=== PATIENT | female | born 1970 | race Caucasian/White ===

== ENCOUNTER 2016-06-30 16:42 | Emergency (ER) | payer OTHER ==
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
[2016-06-30] MEDS ORDERED: MORPHINE SULFATE INJ 10 MG/ML VIAL IM ONE (17:17)
[2016-06-30] MEDS ORDERED: ONDANSETRON ODT 8 MG TAB SL ONE (17:24)
[2016-06-30] MEDS ORDERED: ONDANSETRON INJ 4 MG/2 ML VIAL IV ONE (17:49)
[2016-06-30] MEDS ORDERED: MORPHINE SULFATE INJ 10 MG/ML VIAL IV ONE (18:13)
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
[2016-06-30] MEDS ORDERED: HYDROmorphone HCL INJ 2 MG/ML VIAL IV ONE ×2 (19:23→20:57)
--- NOTE | 2016-06-30 20:40 | CT ---
PROCEDURE: CT of the right knee without intravenous contrast Clinical History and Indication: Right knee pain Comparison: X-ray of the right knee done on the same day Technique: CT of the right knee was done in orthogonal planes, without intravenous contrast Findings: There are no fractures or periosteal reactions involving the bones of the right knee joint. There is no suprapatellar joint effusion. The musculature of the right knee appears grossly unremarkable. An MRI is more sensitive than the current study in evaluation of integrity of the musculature ligaments menisci and tendons. A benign bony island is seen in the proximal metadiaphyseal region of the right tibia. Impression: Unremarkable noncontrast CT of the right knee Location of Interpretation: [id number]. Electronically signed by: Rosendo Waddell MD 06/30/2016 8:39 PM CDT
[2016-06-30] MEDS ORDERED: HYDROcodone 10MG/APAP 325MG 1 EA TAB PO ONE (20:58)
[2016-06-30] MEDS ORDERED: HYDROCOD/APAP 10/325 (ER DISP) # 3 tablets PO ONE (21:09)
[2016-06-30 21:55] VITALS: BP 131/79; TEMP 98; O2SAT 99
== END 2016-06-30 21:55 | disposition home or self-care (01) ==
LOC: ER 16:42
DX: S06.0X0A Concussion without loss of consciousness, initial encounter (principal); S86.911A Strain of unspecified muscle(s) and tendon(s) at lower leg level, right leg, initial encounter; E07.9 Disorder of thyroid, unspecified; Z79.899 Other long term (current) drug therapy; V49.40XA Driver injured in collision with unspecified motor vehicles in traffic accident, initial encounter; Y92.410 Unspecified street and highway as the place of occurrence of the external cause
CPT/HCPCS: 36415; 70450; 73562; 73700; 80053; 85025; J1170; J2270; J2405

== ENCOUNTER 2017-06-07 18:39 | Observation (INO) | payer OTHER ==
[2017-06-07] MEDS ORDERED: SODIUM CHLORIDE 0.9% (FLUSH) 10 ML SYG IV PRN ×2 (18:52→22:08)
[2017-06-07] MEDS ORDERED: ASPIRIN TABLET 325 MG TAB PO ONE (18:52)
--- NOTE | 2017-06-07 19:03 | ED.PDOC ---
History of Present Illness - General Chief Complaint: Chest Pain/SC Stated Complaint: chest pain Time Seen by Provider: 06/07/17 18:52 Source: patient, family Exam Limitations: no limitations - History of Present Illness Initial Comments: CP. STARTED TONIGHT. AT REST. TIGHTNESS ACROSS CHEST. COMES AND GOES, RANGES FROM 10/10 DOWN TO 6/10. NO PRIOR H/O CP. HISTORICALLY HAS LOW BP BUT HER DR NOTICED HIGH RECENTLY AND ORDERED STRESS TEST. WAS 158/102 AT HOME TONIGHT, WHICH IS HIGH FOR HER. Timing/Duration: 1-3 hours Severity/Quality: severe, tightness Location: substernal Chest Pain Radiation: jaw Activities at Onset: none Prior Chest Pain/Cardiac Workup: no prior chest pain Improving Factors: nothing Worsening Factors: nothing Nitro Today/Relief: no nitro taken today Aspirin Treatment Today: no aspirin today Associated Symptoms: denies symptoms - AT PRESENT. 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 Allergies/Adverse Reactions: Allergies NO KNOWN ALLERGY Allergy (Verified 06/07/17 18:54) Home Medications: Ambulatory Orders Levothyroxine Sodium [Synthroid] 175 mcg PO AM 05/29/12 Review of Systems - Review of Systems Constitutional: States: no symptoms reported EENTM: States: no symptoms reported Respiratory: Denies: cough, short of breath, wheezing Cardiology: States: chest pain. Denies: palpitations, syncope Gastrointestinal/Abdominal: States: no symptoms reported Genitourinary: States: no symptoms reported Musculoskeletal: States: no symptoms reported Skin: States: no symptoms reported Neurological: States: no symptoms reported Endocrine: States: no symptoms reported Hematologic/Lymphatic: States: no symptoms reported All other Systems: Reviewed and Negative Past Medical History (General) - Patient Medical History Hx Seizures: No Hx Stroke: No Hx Dementia: No Hx Asthma: No Hx of COPD: No Hx Cardiac Disorders: No Hx Congestive Heart Failure: No Hx Pacemaker: No Hx Hypertension: Yes Hx Thyroid Disease: Yes Hx Diabetes: No Hx Gastroesophageal Reflux: No Hx Renal Disease: No Hx Cancer: No Hx of HIV: No Hx Hepatitis C: No Hx MRSA: No MRSA Source:: Urine Surgical History: cholecystectomy, Hysterectomy, other - Vaccination History Hx Influenza Vaccination: No - Social History Hx Tobacco Use: No Hx Chewing Tobacco Use: No Hx Alcohol Use: No Hx Substance Use: No Hx Substance Use Treatment: No Hx Depression: No - Female History Patient is a Female of Child Bearing Age (10 -59 yrs old): No Family Medical History - Family History Mother Family History: No Known Living Status: Still Living Physical Exam - Physical Exam General Appearance: Alert, Obvious distress Eyes, Ears, Nose, Throat Exam: PERRL/EOMI, normal ENT inspection Neck: non-tender, full range of motion, supple, normal inspection, other - NO JVD. NO BRUIT. Respiratory: chest non-tender, lungs clear, normal breath sounds, no respiratory distress, no accessory muscle use Cardiovascular/Chest: normal peripheral pulses, regular rate, rhythm, no edema, no gallop, no JVD, no murmur Peripheral Pulses: radial,right: 1+, radial,left: 1+ Gastrointestinal/Abdominal: non tender, soft Extremity: non-tender, normal inspection Neurologic: no motor/sensory deficits, alert Skin Exam: normal color, warm/dry Lymphatic: no adenopathy Progress - Progress Progress: 06/07/17 19:50 EKG NSR. CARD ENZ 1ST SET NEG. CP UNCHANGED WITH NTG AND MORPHINE 5 MG, THUS WILL GIVE DILAUDID. 06/07/17 19:55 ON RE-EXAMINATION, PT POINTS TO XIPHOID PROCESS BEING THE SEVERE PAIN, THUS GIVING GI COCKTAIL. 06/07/17 20:26 NO CHEST PAIN SINCE GI COCKTAIL AND DILAUDID GIVEN. WILL COLLECT 2ND SET OF 4 SERIAL TROPONINS. INITIAL DIAGNOSTICS NEG: CBC, CMP, COAGS, BNP, CXR, CARD ENZ, EKG NSR. 06/07/17 21:03 CP RETURNING, THUS GIVING ANOTHER 0.5 MG DILAUDID. 06/07/17 21:27 2ND TROP NEG, THUS [facility] ACCEPTING ADMISSION FOR CP R/O. Departure - Departure Clinical Impression: Chest pain Disposition: Admit Patient Condition: Good Departure Forms: ED Discharge - Pt. Copy, Patient Portal Self Enrollment Diet: low salt diet Home Medications: Ambulatory Orders Levothyroxine Sodium [Synthroid] 175 mcg PO AM 05/29/12 Decision To Admit - Decistion To Admit Decision to Admit Reason: Admit from ER Decision to Admit Date: 06/07/17 Decision to Admit Time: 21:29
--- NOTE | 2017-06-07 19:06 | RAD ---
Chest single view on 06/07/2017 CLINICAL INDICATION: Chest pain COMPARISON: 05/17/2011 FINDINGS: The lungs are clear. Cardiac, hilar and mediastinal contours are within normal limits. Pulmonary vascularity is within normal limits. No bony abnormality is noted. IMPRESSION: No active disease. Electronically signed by: Erick Duran 06/07/2017 7:06 PM [facility]
[2017-06-07] MEDS ORDERED: NITROGLYCERIN 0.4 MG 25 EA TAB SL ONE ×2 (19:11→19:12)
[2017-06-07] MEDS ORDERED: MORPHINE SULFATE INJ 10 MG/ML VIAL IV ONE (19:12)
[2017-06-07] MEDS ORDERED: HYDROmorphone HCL INJ 2 MG/ML VIAL IV ONE ×2 (19:51→21:03)
[2017-06-07] MEDS ORDERED: ALUM & MAG HYDROX-SIMETHICONE 30 ML, LIDOCAINE VISCOUS 2% 15 ML PO ONE ×2 (19:56)
[2017-06-07] MEDS ORDERED: LIDOCAINE HCL 2% (MOUTH-THROAT) 15 ML UD ONE (19:58)
[2017-06-07] MEDS ORDERED: ALUM & MAG HYDROX-SIMETHICONE 30 ML UD ONE (19:59)
--- NOTE | 2017-06-07 21:38 | HP ---
SUPERVISING PHYSICIAN: Brad Meyer MD CHIEF COMPLAINT: Chest pain. HISTORY OF PRESENT ILLNESS: This is a 46-year-old female patient who complained of extreme fatigue and weakness that started about 2 to 3 days ago. Early on the morning, she was so tired with no energy that was so bad that she did not go to work. She slept most of the day, complained of of weakness. Her came home from work and they took her blood pressure. Her blood pressure was 158/102 and she was feeling much worse, so he took her to the Emergency Room. On the way to the Emergency Room, she had some substernal chest pain that radiated up to the left jaw. She also had some shortness of breath, but there was no diaphoresis and there was no worsening of the chest pain with exertion. There was a constant pressure mid chest. In the Emergency Room, she was given an aspirin as well as nitroglycerin. The nitroglycerin helped for about 5 minutes. Shortly thereafter, she received some morphine and it made her feel "funny." Later they gave her Dilaudid that helped some and she did not feel as badly on it as she did the morphine. In the Emergency Room, her CBC was basically within normal limits. Her sodium was 138, potassium 3.5, chloride 108 , carbon dioxide 21, creatinine 0.55, BUN 12. Magnesium 2. Her initial set of cardiac enzymes was negative as well as her subsequent troponin 2 hours later was negative. She was admitted to the hospital for observation for chest pain, rule out myocardial infarction. It is also to be noted that she had a syncopal episode on Tuesday where the room was spinning, she was extremely dizzy, everything went blank and she had poor memory during that time. It lasted about 5 minutes. She also had a similar episode about 4 or 5 months ago, but she has not had chest pain in the past. She did not lose consciousness during her syncopal episode on Tuesday. PAST MEDICAL HISTORY: 1. Attention deficit hyperactivity disorder. 2. History of hyperparathyroidism not being treated at this time. 3. Hypothyroidism on supplementation. 4. Lumbar radiculopathy. 5. Vitamin B12 deficiency. 6. Vitamin D deficiency. 7. Renal stones. PAST SURGICAL HISTORY: 1. Lithotripsy in 2010. 2. Back surgery. 3. Appendectomy. 4. Cholecystectomy. 5. Hysterectomy. 6. Exploratory laparoscopy for ovarian cyst and endometriosis. 7. Bilateral tubal ligation. OUTPATIENT MEDICATIONS: 1. Synthroid. ALLERGIES: NO KNOWN DRUG ALLERGIES. SOCIAL HISTORY: She lives in [place]. 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 She is . She has 3 children. She has never smoked. She drinks alcohol on a social basis. She denies any illicit drug use. REVIEW OF SYSTEMS: GENERAL: Positive for fatigue. Negative for fever, chills or weight changes. HEENT: Positive for vision changes in the past week. Negative for sinus symptoms, ear pain or sore throat. RESPIRATORY: Positive for shortness of breath. Negative for wheezing, coughing. CARDIAC: As per history of present illness. GASTROINTESTINAL: Positive for questionable acid reflux. Negative for vomiting , diarrhea, constipation. GENITOURINARY: Negative for hematuria, dysuria or polyuria. INTEGUMENT: Negative for rashes or lesions. NEUROLOGIC: Positive fro dizziness, weakness. Negative for headaches or seizures. PSYCHIATRIC: Denies anxiety, depression or sleep disturbances. PHYSICAL EXAMINATION: VITAL SIGNS: Afebrile. Heart rate 68. Blood pressure as been as high as 158/ 102. It is 124/76. Respiratory rate 20. O2 saturation 98% on room air. GENERAL: This is a 46-year-old female patient lying in her hospital bed. She is in no acute distress. HEENT: Normocephalic, atraumatic. Pupils are equal and reactive. Oropharynx is clear. NECK: Supple without mass. No jugular venous distention. She does have a nodular thyroid. RESPIRATORY: Essential clear to auscultation bilaterally. CHEST: There is equal rise and fall of the chest with inspiration and expiration. CARDIOVASCULAR: Regular rate and rhythm. GASTROINTESTINAL: Abdomen is soft, nondistended, nontender. Bowel sounds are positive. EXTREMITIES: No cyanosis, clubbing or edema. NEUROLOGIC: She is somewhat lethargic, but oriented times three. LABORATORY: Labs are as per history of present illness. Chest x-ray shows no active disease per radiologic interpretation. All other labs and films have been reviewed via the EMR. ASSESSMENT: 1. Chest pain, rule out myocardial infarction. 2. Extreme fatigue with dizziness times 2 to 3 weeks. 3. Hypertension. 4. Syncopal episode without loss of consciousness. 5. Hypothyroidism. 6. Attention deficit hyperactivity disorder. 7. Vitamin B12 deficiency. 8. Vitamin D deficiency. PLAN: We will place the patient in observation. I have initiated the chest pain protocol. We will do serial cardiac enzymes. I have started on lisinopril at 10 mg daily for the hypertension and she will need to continue that on discharge. I have ordered a thyroid panel as well as B12 and vitamin D level. We have also ordered a CAT scan of the head as well as carotid ultrasound and thyroid ultrasound. I have restarted her home medications. She is on a proton pump inhibitor for ulcer prophylaxis and Lovenox for DVT prophylaxis. She most likely will be discharged tomorrow afternoon with close followup with all her testing with Dr. Meyer on Tuesday or Tuesday. Meanwhile, we will continue to monitor the patient closely and follow as needed. Dr. Meyer is the collaborating physician and available for consultation. #[id number] [facility]
[2017-06-07] MEDS ORDERED: NITROGLYCERIN 0.4 MG 25 EA TAB SL PRN (22:08)
[2017-06-07] MEDS ORDERED: ACETAMINOPHEN 325 MG TAB PO PRN (22:08)
[2017-06-07] MEDS ORDERED: MORPHINE SULFATE INJ 10 MG/ML VIAL IV PRN (22:08)
[2017-06-07] MEDS ORDERED: IV SET AND CAP CHANGE INJ INJ SCH (22:30)
[2017-06-07] MEDS: LISINOPRIL 10 MG TAB PO SCH (22:35)
[2017-06-07] MEDS ORDERED: ALPRAZolam 0.25 MG TAB PO PRN (22:42)
[2017-06-07] MEDS ORDERED: ALUMINUM & MAGNESIUM HYDROXIDE 30 ML UD PO PRN (22:43)
[2017-06-08] MEDS ORDERED: PANTOPRAZOLE SODIUM TAB 40 MG PO SCH (06:30)
[2017-06-08] MEDS: LISINOPRIL 10 MG TAB PO SCH (08:19)
[2017-06-08] MEDS ORDERED: LEVOTHYROXINE SODIUM 0.075 MG TAB ONE (08:20)
[2017-06-08] MEDS ORDERED: LEVOTHYROXINE SODIUM 0.1 MG TAB ONE (08:20)
[2017-06-08] MEDS ORDERED: ASPIRIN TABLET 325 MG TAB PO SCH (09:00)
[2017-06-08] MEDS ORDERED: SODIUM CHLORIDE 0.9% (FLUSH) 10 ML SYG IV SCH (09:00)
[2017-06-08] MEDS ORDERED: LEVOTHYROXINE SODIUM PO SCH ×2 (09:00)
[2017-06-08] MEDS ORDERED: NON-FORMULARY MEDICATION 1 EA MIS (Levothyroxine Sodium [Synthroid] 175 MCG) PO SCH (09:00)
[2017-06-08] MEDS ORDERED: ENOXAPARIN SODIUM 40 MG/0.4 ML SYG SUBCU SCH (11:30)
--- NOTE | 2017-06-08 11:50 | CT ---
EXAM DESCRIPTION: Head CLINICAL HISTORY: syncope COMPARISON: None available TECHNIQUE: Noncontrast head CT was performed with routine protocol. FINDINGS: Small high density lesion in the left posterior cerebellar hemisphere measures 1.13 cm in greatest dimension with minimal surrounding low density suggesting mild edema. This appears to be intra-axial. High density suggests focal intraparenchymal hemorrhage. This could be related to essential hypertension or underlying vascular malformation. No history of trauma to suggest brain contusion. No calcification is seen on the bone window images. MRI without and with gadolinium may be helpful for further evaluation. Sagittal images suggest peripheral ring of high density with central lower density. Primary brain tumor with hemorrhage is uncommon but some types of metastases can be hemorrhagic. Normal cerebral roach-white matter differentiation. Ventricles and sulci are normal for age. Low-density suggests old lacunar infarct in right basal ganglial region. No herniation or shift of the midline. There may be mild effacement of overlying cerebellar folia. Normal orbital contents. Basilar cisterns appear clear. Intact calvarium with no fracture or lytic lesion. Normal aeration of tympanic cavities and mastoid air cells. No fluid levels in the paranasal sinuses. There is mucosal thickening of the upper right maxillary sinus, scattered ethmoid air cells and posterior nasal septum. There is prominent sphenoid pneumatization. Skull base appears intact. Symmetrical internal auditory canals. Coronal and sagittal reformatted images confirm the findings. No midline shift or subdural hematoma on the coronal images. Sagittal images show intact corpus callosum with partially empty sella. Beam hardening artifact obscures the silvio and medulla. IMPRESSION: High density lesion in the posterior left cerebellar hemisphere suggesting focal intraparenchymal hemorrhage approximately 1 cm in size. See above recommendations for further evaluation. This exam was performed according to our departmental dose-optimization program, which includes automated exposure control, adjustment of the mA and/or kV according to patient size and/or use of iterative reconstruction technique. Total DLP equals 752.48 mGycm. Electronically signed by: Javier Caldwell MD 06/08/2017 11:49 AM DIRECTOR APPAREL
[2017-06-08 13:42] VITALS: BP 126/79; TEMP 98
--- NOTE | 2017-06-08 14:19 | US ---
EXAM DESCRIPTION: Carotid Duplex CLINICAL HISTORY: dizziness COMPARISON: None Available. TECHNIQUE: Carotid Doppler ultrasound FINDINGS: Right Submitted images show no significant stenosis is seen in the common carotid, internal carotid or external carotid arteries.. Soft plaque is seen in the right carotid bulb without significant narrowing. The following flow velocities were obtained: Common carotid artery peak systolic flow velocity measurements range from 74 to 80 cm/s. Internal carotid artery peak systolic flow velocity measurements range from 60 to 90 cm/s. The right internal carotid to common carotid peak systolic flow velocity ratio of 1.1 is normal. External carotid artery peak systolic flow velocity measures 75 cm/s. Flow in the right vertebral artery is antegrade. Left Submitted images show normal caliber of the left common carotid, internal carotid and external carotid arteries with no significant stenosis. Mild soft plaque is seen in the left carotid bulb with minimal surface irregularity. The following flow velocities were obtained: Common carotid artery peak systolic flow velocity measurements range from 90-110 cm/s. Internal carotid artery peak systolic flow velocity measurements range from 46 to 73 cm/s, within normal limits. The left internal carotid to common carotid peak systolic flow velocity ratio 0.7 is normal. External carotid artery peak systolic flow velocity measures 81 cm/s. Flow in the left vertebral artery is antegrade. IMPRESSION: Arteriosclerotic plaque at the carotid bifurcations bilaterally. No flow velocity elevation to suggest significant stenosis. Antegrade flow in the vertebral arteries. Electronically signed by: Javier Caldwell MD 06/08/2017 2:18 PM FILM EXAMINER
[2017-06-08 14:27] VITALS: O2SAT 94
--- NOTE | 2017-06-08 14:29 | US ---
THYROID ULTRASOUND CLINICAL INFORMATION: Nodular thyroid TECHNIQUE: Thyroid sonography was performed COMPARISON: None FINDINGS: Thyroid size: Right thyroid lobe measures 1.6 x 1.7 x 5.6 cm. The isthmus measures 1 mm in thickness. The left thyroid lobe measures 1.8 x 1.7 x 5.4 cm. Texture: Inhomogeneous hypoechoic coarse texture. Nodules: Right A nodule is measured in the right thyroid lobe which appears hypoechoic and sharply circumscribed and ovoid in shape. This measures 3 x 1.2 x 1.5 cm. Fine-needle aspiration biopsy should be considered for a nodule of this size. Another hypoechoic nodule is measured thought to be at the lower pole of the right thyroid lobe. This could be pedunculated thyroid nodule or parathyroid adenoma measuring 1.3 x 0.9 x 0.7 cm. Correlate with serum calcium levels. Left Nodular area is measured in the left thyroid lobe occupying the mid and lower portion which could conceivably represent a nodule although it appears similar to the remainder of the thyroid glandular tissue. This was measured at 3.4 x 1.4 x 1.6 cm. In the superior aspect the left thyroid lobe another questionable nodule is measured as 1.8 x 1.5 x 1.1 cm. Color Doppler imaging shows normal flow. No hyperemic nodules. I would favor the nodularity of the left thyroid lobe to be part of the underlying disease process rather than distinct nodules and therefore this could be followed up with a repeat thyroid sonogram in a year rather than biopsy. No anterior cervical adenopathy is evident on the submitted images. IMPRESSION: Hypoechoic inhomogeneous thyroid gland with appearance suggesting chronic Rl's thyroiditis. Nodular lesions within and adjacent to the inferior right lobe. See above. Electronically signed by: Javier Caldwell MD 06/08/2017 2:28 PM [facility]
--- NOTE | 2017-06-08 16:27 | DS ---
SUPERVISING PHYSICIAN: Brad Meyer M.D. DISCHARGE DIAGNOSIS: 1. Posterior left cerebellar intraparenchymal hemorrhage of approximately 1 cm. 2. Chest pain rule out myocardial infarction with negative serial cardiac enzymes. 3. Extreme fatigue with dizziness times 2 to 3 weeks. 4. Hypertension. 5. Syncopal episode without loss of consciousness. 6. Hypothyroidism. 7. Attention deficit hyperactivity disorder. 8. Vitamin B12 deficiency. 9. Vitamin D deficiency. HISTORY OF PRESENT ILLNESS: This is a 46 year-old female patient who presented to the Emergency Room with chest pain. Early on the morning of admission, she complained of fatigue and weakness to the extent that she could not go to work. She slept most of the day. Her came in, took her blood pressure. It was 158/102. He decided that, because she was feeling so poorly and due to her elevated blood pressure, she should come to the Emergency Room. On the way to the Emergency Room is when she developed the chest pain. It radiated up to her jaw. There was no diaphoresis and there was no change in chest pain with exertion. Initial cardiac enzymes were negative in the Emergency Room. CBC was basically within normal limits. Sodium 138, potassium 3.5, chloride 108, carbon dioxide 21, creatinine 0.55, BUN 12, magnesium was 2. Her second set of cardiac enzymes was negative and she was then admitted to the hospital for observation. HOSPITAL COURSE: It is to be noted that she did complain that she had a near syncopal episode on Tuesday where she was dizzy, the room was spinning and her vision went blank. It lasted about 5 minutes and she remembered a similar episode several weeks ago that was not as intense or as severe. During her hospital stay, a carotid ultrasound was performed that showed arteriosclerotic plaque at the carotid bifurcations bilaterally with no flow velocity elevation to suggest significant stenosis. A thyroid ultrasound was also completed and results are pending. A head CT was also done and she was found to have a 1 cm posterior left cerebellar intraparenchymal hemorrhage. I contacted Dr. Borja, neurologist in [place], and he recommend that she be transferred to [facility] for further evaluation. Her subsequent serial cardiac enzymes were negative. Her blood pressure continued to have some elevation after she was admitted with the highest blood pressure being 162/104. She was started on Lisinopril. Her blood pressure on discharge is 126/79. Subsequent metabolic panel was basically within normal limits with triglycerides high at 176, LDL 112.7 and HDL cholesterol 38. Free T4 index was 0.2 with T4 of 8.38 and T3 uptake of 41.4. Vitamin B12 was 1,402 and Vitamin D is pending. DISCHARGE PLAN: The patient will be discharged to [facility]. She is in stable condition. Dr. Cerna, hospitalist at [facility], accepted her at 1:[address] Borja will be consulting. All labs and films will be sent with the patient. She is to followup with Dr. Meyer after discharge. She does have an appointment on 06/13/17 at 9:00 AM. DISCHARGE MEDICATIONS: 1. Levothyroxine. 2. Lisinopril. #[id number] [facility]
== END 2017-06-08 14:11 | disposition short-term general hospital (02) ==
LOC: ER 18:39 → MS 21:38
PROVIDERS: ADMIT Nurse Practitioner Acute Care; ATTEND Nurse Practitioner Acute Care
DX: I61.4 Nontraumatic intracerebral hemorrhage in cerebellum (principal); R07.89 Other chest pain; R53.83 Other fatigue; R42 Dizziness and giddiness; I10 Essential (primary) hypertension; R55 Syncope and collapse; E03.9 Hypothyroidism, unspecified; F90.9 Attention-deficit hyperactivity disorder, unspecified type; E53.8 Deficiency of other specified B group vitamins; E55.9 Vitamin D deficiency, unspecified; R06.02 Shortness of breath; Z79.899 Other long term (current) drug therapy
CPT/HCPCS: 36415 ×7; 70450; 71045; 76536; 80048 ×3; 80061; 81001; 82306; 82550 ×3; 82553 ×3; 82607; 83880; 84436; 84479; 84484 ×4; 85025; 85610; 85730; 93005 ×2; 93880; 94760; 96374; 96375; 96376 ×2; 99284; J1170 ×2; J2270 ×2

== ENCOUNTER 2017-06-21 18:01 | Emergency (ER) | payer OTHER ==
[2017-06-21] MEDS ORDERED: HYDROcodone 5MG/APAP 325MG 1 EA TAB PO ONE (18:12)
--- NOTE | 2017-06-21 18:50 | CT ---
PROCEDURE: Head CLINICAL HISTORY: 46 years Female hernandez/ams, recent ich COMPARISON: 06/08/2017. TECHNIQUE: Contiguous axial CT images obtained through the brain without IV contrast. This exam was performed according to our department optimization program which includes automated exposure control, adjustment of the mA and/or kv according to patient size and/or use of iterative reconstruction technique. FINDINGS: The ventricles and sulci are within normal limits for the patient's age. No midline shift or mass effect. Note is again made of a hyperdense lesion in the posterior aspect of the left cerebellum without surrounding edema. This is unchanged as compared to the examination from 06/08/2017. It appears similar when compared to the examination 06/30/2016. Findings may reflect cavernous angioma. This could be further evaluated with MRI if this has not been previously performed. No acute intracranial hemorrhage. No fluid or significant mucosal thickening in the visualized paranasal sinuses. No depressed calvarial fractures. IMPRESSION: Hyperdense focus along the posterior aspect of the left cerebellum medially which is unchanged as compared to the examination 06/08/2017 and appears similar to the examination 06/30/2016. There is no surrounding edema. Findings are not consistent with an area of hemorrhage. Suspect cavernous angioma. Consider further evaluation with MRI if indicated. No acute intracranial abnormality is identified. Electronically signed by: Jackie Dobbs MD 06/21/2017 6:48 PM CDT
--- NOTE | 2017-06-21 18:55 | RAD ---
EXAM DESCRIPTION: Chest,1 View CLINICAL HISTORY: 46 years Female chest pain COMPARISON: 06/07/2017 FINDINGS: The cardiomediastinal silhouette appears unremarkable. No consolidating infiltrates or pleural effusions. No pneumothorax. IMPRESSION: No acute abnormality is identified. Electronically signed by: Jackie Dobbs MD 06/21/2017 6:52 PM CDT
[2017-06-21] MEDS ORDERED: KETOROLAC TROMETHAMINE INJ 30 MG/ML VIAL IV ONE (19:12)
[2017-06-21] MEDS ORDERED: MORPHINE SULFATE INJ 10 MG/ML VIAL IV ONE (19:58)
--- NOTE | 2017-06-21 20:01 | ED.PDOC ---
History of Present Illness - General Chief Complaint: Neuro Symptoms/Deficits Time Seen by Provider: 06/21/17 18:10 Source: patient, family Exam Limitations: no limitations - History of Present Illness Initial Comments: the patient's a 46-year-old female presenting to the emergency room secondary to a moderate elevation in her blood pressure coinciding with a significant increase in her headache and a mild increase in her confusion. The patient apparently had a hemorrhagic stroke 2 weeks ago and was just let out of the hospital 5 or 6 days ago. She has had some mild daily headaches and some mild intermittent confusion. She is having some mild dizziness. No vomiting. No fevers. No focal neurological defects today. Blood pressure started rising a little more today and her headache started getting a little worse and has been so she presented here area and she is scheduled to see Dr. hernández in the very near future.the patient was apparently evaluated by both neurology and cardiology at her stay at [facility]. she apparently did have an MRI there. No evidence of any coronary artery disease. She does have some chronic gastritis issues. Timing/Duration: 4-6 hours Severity: moderate Improving Factors: nothing Worsening Factors: nothing Associated Symptoms: headaches Allergies/Adverse Reactions: Allergies NO KNOWN ALLERGY Allergy (Verified 06/07/17 18:54) Home Medications: Ambulatory Orders Levothyroxine Sodium [Synthroid] 175 mcg PO AM 05/29/12 Lisinopril [Prinivil] 10 mg PO DAILY tab 06/08/17 Iggozpidtsuub-Wjcc-Lcqlyavllp [Fioricet] 1 ea PO Q8H PRN #21 tab 06/21/17 Review of Systems - Review of Systems Constitutional: States: malaise EENTM: States: no symptoms reported Respiratory: States: no symptoms reported Cardiology: States: no symptoms reported Gastrointestinal/Abdominal: States: no symptoms reported Genitourinary: States: no symptoms reported Musculoskeletal: States: no symptoms reported Skin: States: no symptoms reported Neurological: States: anxiety, headache Endocrine: States: no symptoms reported All other Systems: No Change from Baseline Past Medical History (General) - Patient Medical History Hx Seizures: No Hx Stroke: No Hx Dementia: No Hx Asthma: No Hx of COPD: No Hx Cardiac Disorders: No Hx Congestive Heart Failure: No Hx Pacemaker: No Hx Hypertension: Yes Hx Thyroid Disease: Yes Hx Diabetes: No Hx Gastroesophageal Reflux: No Hx Renal Disease: No Hx Cancer: No Hx of HIV: No Hx Hepatitis C: No Hx MRSA: No MRSA Source:: Urine Surgical History: Hysterectomy - Vaccination History Hx Influenza Vaccination: No Hx Pneumococcal Vaccination: No - Social History Hx Tobacco Use: No Hx Chewing Tobacco Use: No Hx Alcohol Use: No Hx Substance Use: No Hx Substance Use Treatment: No Hx Depression: No - Female History Patient is a Female of Child Bearing Age (10 -59 yrs old): No - hysterectomy Family Medical History - Family History Mother Family History: No Known Living Status: Still Living Hx Family Congestive Heart Failure: Yes Hx Family Hypertension: Yes Hx Cardiac Disease: Yes Hx Family Diabetes: Yes Physical Exam - Physical Exam General Appearance: Alert, Anxious Eye Exam: bilateral normal Ears, Nose, Throat: hearing grossly normal, normal ENT inspection, normal pharynx Neck: full range of motion, supple, normal inspection Respiratory: lungs clear, normal breath sounds, no respiratory distress, no accessory muscle use Cardiovascular/Chest: normal peripheral pulses, regular rate, rhythm, no edema Peripheral Pulses: radial,right: 2+, radial,left: 2+, dorsalis pedis,right: 2+, dorsalis pedis,left: 2+ Gastrointestinal/Abdominal: non tender, soft Rectal Exam: deferred Back Exam: normal inspection, no CVA tenderness, no vertebral tenderness Extremity: normal range of motion, non-tender, normal inspection, no pedal edema , normal capillary refill Neurologic: farm demonstrator II-XII nml as tested, no motor/sensory deficits, alert, normal mood/affect, oriented x 3 Skin Exam: normal color Comments: Vital Signs - 24 hr 06/21/17 06/21/17 06/21/17 18:01 19:19 19:52 Temperature 99.0 F Pulse Rate [ 70 62 71 Apical] Respiratory 18 13 Rate Blood Pressure 156/88 149/74 137/88 [Right Arm] O2 Sat by Pulse 99 100 99 Oximetry Progress - Progress Progress: 06/21/17 20:03 the patient is a 46-year-old female presenting to the emergency room secondary to headache and a mild elevation in her blood pressure given her recent significant medical history. The patient received several doses of pain medications which have helped with the headache. The patient will be written for Fioricet to be used as needed when the headaches occur. She does need to keep follow-up with neurology in the very near future. Head CT showed no significant change when compared to the one from a few weeks ago. ER warnings were given for any significant worsening. Blood pressures were within normal range by the time of discharge. - Results/Orders Results/Orders: Laboratory Tests 06/21/17 06/21/17 06/21/17 18:15 18:15 18:15 WBC 8.6 RBC 4.62 Hgb 14.2 Hct 41.4 MCV 89.7 MCH 30.7 MCHC 34.2 RDW 12.6 Plt Count 318 MPV 8.0 Absolute Neuts (auto) 5.40 Absolute Lymphs (auto) 2.30 Absolute Monos (auto) 0.60 Absolute Eos (auto) 0.20 Absolute Basos (auto) 0.10 Neutrophils % 63.2 Lymphocytes % 26.6 Monocytes % 6.7 Eosinophils % 2.8 Basophils % 0.7 PT 10.3 INR 0.910 PTT (SP) 27.4 Sodium 136 Potassium 3.6 Chloride 103 Carbon Dioxide 26 Anion Gap 10.6 L BUN 12 Creatinine 0.69 BUN/Creatinine Ratio 17.4 Random Glucose 96 Serum Osmolality 271.6 L Calcium 9.4 Total Bilirubin 1.0 AST 19 ALT 22 Alkaline Phosphatase 86 Creatine Kinase 47 CK-MB (CK-2) 1.1 CK-MB (CK-2) % Not Reportable Troponin I < 0.02 B-Natriuretic Peptide 8.0 Serum Total Protein 7.8 Albumin 4.6 Globulin 3.2 Albumin/Globulin Ratio 1.4 chest x-ray shows no acute pathology. Head CT shows no significant change from several weeks ago. Departure - Departure Clinical Impression: Headache, post-traumatic, chronic Qualifiers: Intractability: not intractable Qualified Code(s): G44.329 - Chronic post- traumatic headache, not intractable Disposition: Discharge to Home or Self Care Condition: Fair Departure Forms: ED Discharge - Pt. Copy, Patient Portal Self Enrollment Instructions: DI for Stroke-Intracerebral Hemorrhage Diet: regular diet Activity: increase activity as tolerated Referrals: Brad Meyer MD [Primary Care Provider] - 1-2 Weeks Prescriptions: Mwtqesqtapsvl-Myxy-Iunasxdnno [Fioricet] 1 ea PO Q8H PRN #21 tab PRN Reason: Pain Home Medications: Ambulatory Orders Levothyroxine Sodium [Synthroid] 175 mcg PO AM 05/29/12 Lisinopril [Prinivil] 10 mg PO DAILY tab 06/08/17 Sxrdtryamfifx-Hmfs-Pkvqtgzpyg [Fioricet] 1 ea PO Q8H PRN #21 tab 06/21/17 Additional Instructions: the patient is a 46-year-old female presenting to the emergency room secondary to headache and a mild elevation in her blood pressure given her recent significant medical history. The patient received several doses of pain medications which have helped with the headache. The patient will be written for Fioricet to be used as needed when the headaches occur. She does need to keep follow-up with neurology in the very near future. Head CT showed no significant change when compared to the one from a few weeks ago. ER warnings were given for any significant worsening. Blood pressures were within normal range by the time of discharge.
[2017-06-21] MEDS ORDERED: MEPERIDINE HCL 50 MG/ML VIAL IV ONE (21:13)
[2017-06-21 22:00] VITALS: BP 140/82; TEMP 97.8; O2SAT 95
== END 2017-06-21 21:59 | disposition home or self-care (01) ==
LOC: ER 18:01
DX: G44.329 Chronic post-traumatic headache, not intractable (principal); E07.9 Disorder of thyroid, unspecified; I10 Essential (primary) hypertension; Z86.73 Personal history of transient ischemic attack (TIA), and cerebral infarction without residual deficits
CPT/HCPCS: 36415; 70450; 71045; 80053; 82550; 82553; 83880; 84484; 85025; 85610; 85730; 93005; J1885; J2060; J2175; J2270

== ENCOUNTER → 2017-09-06 | Outpatient (CLI) | payer OTHER ==
--- NOTE | 2017-09-06 16:32 | MRI ---
EXAM DESCRIPTION: MRA Head and/or Neck CLINICAL HISTORY: 47 years Female, CEREBELLUM HEMORRHAGE, MRA HEAD COMPARISON: CT scan of the head without IV contrast 06/21/2017. MRA of the neck on this visit. TECHNIQUE: 3-D [id number] imaging with swimmer's images 1 mm thickness. Reconstructions. No complaints. FINDINGS: The lesion approximately 1.5 cm in long axis is present in the mid posterior left cerebellar hemisphere in a parasagittal location. This corresponds to prior hemorrhage. No surrounding central signal with peripheral hypointense signal and small focus of bright signal in the periphery. No posterior abnormal vascularity abutting the lesion. Left vertebral artery larger than the right. Only right PICA vessel is seen. Bilateral AICA vessels are unremarkable. Bilateral superior cerebellar vessels are unremarkable. Slight tortuosity of the basilar artery. Posterior cerebral arteries bilaterally are symmetric. No definitive posterior communicating arteries. No aneurysm significant stenosis mass effect or vasculitis on the posterior circulation. Bilateral internal cerebral arteries appear symmetric from the skull base to the intracranial segments. Proximal anterior and middle cerebral arteries are symmetric. No aneurysm or significant stenosis mass effect or vasculitis. IMPRESSION: 1. Previous hemorrhagic lesion noted in the posterior parasagittal mid left cerebellar hemisphere with significant changes related to age of the hemorrhage. No abnormal vascular supply in the adjacent tissues. 2. Anterior and posterior circulations are unremarkable except the left vertebral artery is dominant. No aneurysms, no significant stenoses, no mass effect, and no vasculitis. Posterior communicating arteries are not visualized. Electronically signed by: Willian Carter MD 09/06/2017 4:30 PM CDT
--- NOTE | 2017-09-06 16:48 | MRI ---
EXAM DESCRIPTION: MRA Head and/or Neck CLINICAL HISTORY: 47 years Female, HYPERTENSION, MRA NECK. Left cerebellar hemorrhage. COMPARISON: Noncontrast MRA of the head on the same visit. TECHNIQUE: 3-D ikic-lc-uzbwpg and 2-D wbbs-uu-wwqrfs axial acquisitions at 5 mm and 3 mm thicknesses clear. Rotated and tumble MIP reconstructions. FINDINGS: In the proximal left ICA, there is slight dilation with suggestion of filling defect on the posterior wall. This represents a 34% diameter stenosis. The ICAs are unremarkable. At a slightly higher level in the proximal right ICA, is a 27% diameter stenosis on the posterior lateral wall. Proximal ECA is unremarkable. No aneurysms are noted bilaterally. No mass effect. The left vertebral artery is asymmetrically larger than the right vertebral artery. This is uniform from the origins to the skull base. No significant stenoses, aneurysm, or mass effect. No abnormal vascular pattern bilaterally.. IMPRESSION: 1. Bilateral stenoses of the proximal ICAs do not appear to be hemodynamically significant, bilateral less than 40%. There is minimal artifact associated with the proximal left ICA. These findings are concordant with the ultrasound carotid duplex examination 06/18/2017.. Electronically signed by: Willian Carter MD 09/06/2017 4:47 PM CDT
== END ==
LOC: MRI 09:00
PROVIDERS: ATTEND Psychiatry & Neurology Neurology
DX: Z01.812 Encounter for preprocedural laboratory examination (principal); I10 Essential (primary) hypertension; I61.4 Nontraumatic intracerebral hemorrhage in cerebellum; M54.12 Radiculopathy, cervical region; M54.16 Radiculopathy, lumbar region

== ENCOUNTER → 2017-12-07 | Outpatient (CLI) | payer SELFPAY ==
--- NOTE | 2017-12-07 17:01 | MRI ---
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 COMPARISON: Previous CT head June 30, 2016, previous CT head June 21, 2017 TECHNIQUE: MRI of the brain is performed according to our usual protocol including multiplanar multi sequence technique. Post gadolinium imaging is performed following IV administration of 20 mL of Magnevist. FINDINGS: Sagittal T1 images show intact corpus callosum. Metal artifacts, soft tissue and skull deformities are noted consistent with previous left suboccipital craniotomy. No high signal intensity hemorrhage within the brain parenchyma. No posterior fossa subdural hematoma. No evidence of swelling or brain edema. Normal pituitary gland with normal T1 appearance of the silvio and medulla and upper cervical cord. Normal appearance of the fourth ventricle and foramen magnum. Normal signal intensity within the clivus and calvarium. Axial T2 fat sat images reveal preservation of intracranial vascular flow voids. Normal roach matter T2 signal intensity. Normal ventricles with normal gyral and sulcal fold pattern. The globes appear intact and symmetrical. No abnormal fluid signal in the tympanic cavities or mastoid air cells. Mild mucosal thickening in the right maxillary sinus and right ethmoid air cells suggesting chronic inflammatory change of mild degree. Mild nasal turbinate swelling. Axial flair images show scattered punctate foci of increased signal intensity in the subcortical white matter of both cerebral hemispheres consistent with mild microvascular ischemic changes. Increased signal intensity is seen in the parasagittal posterior left cerebellar hemisphere consistent with a small postoperative resection cavity with thin ash and no surrounding edema. When artifacts are taken into account, diffusion weighted images are negative for focal intense increased signal intensity in the brain parenchyma to suggest restricted diffusion. ADC mapping is negative. Axial T1 precontrast images show normal roach-white matter differentiation. No high signal intensity hemorrhagic lesion of the brain parenchyma. No subdural hematoma. Coronal susceptibility weighted images show minimal linear signal loss in the left cerebellar hemisphere consistent with hemosiderin deposition from surgery or previous bleeding from the cavernoma. Coronal T2 and FLAIR images confirm the findings. Normal appearance of the pituitary gland on the coronal images. After IV contrast, axial T1 images show normal enhancement of intracranial vessels. Thin rim of enhancement is seen at the postoperative site in the left cerebellar hemisphere. Coronal T1 postcontrast images show normal dural sinus enhancement with normal enhancement of the pituitary gland. Sagittal T1 postcontrast images show a thin rim of enhancement around the left cerebellar hemispheric resection cavity as expected. No serpiginous enhancement or masslike enhancement to suggest neoplasm or residual or recurrent vascular malformation. IMPRESSION: Postoperative changes in the left cerebellar hemisphere as described. Electronically signed by: Javier Caldwell MD 12/07/2017 5:00 PM CDT
== END ==
LOC: MRI 12:15
PROVIDERS: ATTEND Psychiatry & Neurology Neurology
DX: Z01.812 Encounter for preprocedural laboratory examination (principal); M54.16 Radiculopathy, lumbar region; G40.219 Localization-related (focal) (partial) symptomatic epilepsy and epileptic syndromes with complex partial seizures, intractable, without status epilepticus; H81.391 Other peripheral vertigo, right ear; I61.4 Nontraumatic intracerebral hemorrhage in cerebellum

== ENCOUNTER → 2018-05-18 | Outpatient (CLI) | payer BC | LOC: GMAM 15:05 | PROVIDERS: ATTEND Family Medicine | DX: E53.8 Deficiency of other specified B group vitamins (principal); E03.9 Hypothyroidism, unspecified; E21.3 Hyperparathyroidism, unspecified; E55.9 Vitamin D deficiency, unspecified ==

== ENCOUNTER 2018-06-24 12:44 | Emergency (ER) | payer BC, SELFPAY ==
[2018-06-24] MEDS ORDERED: KETOROLAC TROMETHAMINE INJ 30 MG/ML VIAL IV ONE (13:09)
[2018-06-24 13:36] VITALS: TEMP 98.3
--- NOTE | 2018-06-24 14:14 | CT ---
EXAM DESCRIPTION: Head CLINICAL HISTORY: fell off horse, loc, head and hip/back pain COMPARISON: Previous head CT June 21, 2017 TECHNIQUE: Noncontrast head CT was performed with routine protocol. FINDINGS: Normal roach-white matter differentiation. Ventricles and sulci are normal for age. Low density in the left cerebellar hemisphere is consistent with encephalomalacia from old infarction or hemorrhage. Previous study showed hypodensity in this area. The high density has resolved leaving only a small area of encephalomalacia. No mass effect. Overlying left occipital craniotomy is seen with anatomic alignment of the bone flap. No acute-appearing high density hemorrhage, focal edema or shift of the midline. No sulcal effacement. Normal orbital contents. Basilar cisterns appear clear. Intact calvarium with no fracture or lytic lesion. Normal aeration of tympanic cavities and mastoid air cells. There is fluid opacification of the right maxillary sinus with circumferential mucosal thickening and internal frothy fluid consistent with acute on chronic sinusitis. Patchy opacification of ethmoid air cells bilaterally. Other paranasal sinuses are clear sinusitis is a new development compared to previous study. Skull base appears intact. Symmetrical internal auditory canals. IMPRESSION: Paranasal sinus inflammatory disease. No acute intracranial pathologic process. This exam was performed according to our departmental dose-optimization program, which includes automated exposure control, adjustment of the mA and/or kV according to patient size and/or use of iterative reconstruction technique. Total DLP equals 967.47 mGycm. Electronically signed by: Javier Caldwell MD 06/24/2018 2:11 PM CDT
--- NOTE | 2018-06-24 14:19 | CT ---
EXAM DESCRIPTION: Cervical Spine CLINICAL HISTORY: fell off horse, loc, head and hip/back pain COMPARISON: None Available. TECHNIQUE: Cervical CT is performed with thin-section axial imaging. MPRs are created and reviewed as well. FINDINGS: Axial bone window images reveal intact ring of C1. No abnormal widening of the atlantodens interval. No fracture of the vertebral bodies or transverse processes or posterior elements. Lung apices appear clear. No cervical mass or adenopathy. Left occipital craniotomy. Plate and screws in the lower C-spine with anterior interbody fusion at C6-7. Prominent uncovertebral joint spurring at C5-6 and C6-7 with neural foraminal encroachment. Sagittal reformatted images show normal alignment of vertebral bodies and facets. No jumped facet or facet fracture. Normal craniocervical alignment. No prevertebral soft tissue swelling. No a avulsion of the spinous processes. Spondylosis: Degenerative disc space narrowing is most prominent at the C5-6 level with mild anterior and posterior spurring. No high-grade spinal stenosis. Degenerative changes around the dens. Coronal reformatted images show normal atlantooccipital and atlantoaxial alignment. The base of the dens is intact as is the body of C2. Intact lateral masses. IMPRESSION: Negative for fracture or posttraumatic subluxation. This exam was performed according to our departmental dose-optimization program, which includes automated exposure control, adjustment of the mA and/or kV according to patient size and/or use of iterative reconstruction technique. Total DLP equals 437.44 mGycm. Electronically signed by: Javier Caldwell MD 06/24/2018 2:16 PM CDT
--- NOTE | 2018-06-24 14:25 | CT ---
PROCEDURE: CT Chest Without Intravenous Contrast CLINICAL INDICATION: The patient is 47 years years old, Female; fell off horse, loc, head and hip/back pain TECHNIQUE: Axial computed tomography images of the chest without intravenous contrast. Sagittal and coronal reformatted images were created and reviewed. This CT exam was performed using one or more of the following dose reduction techniques: automated exposure control, adjustment of the mA and/or kV according to patient size, and/or use of iterative reconstruction technique. COMPARISON: No relevant prior studies available. FINDINGS: LUNGS: Groundglass opacification is noted fairly symmetrically in the lower lobes and dependent upper lobes and a nonspecific finding and not necessarily indicative of significant pathology. Sometimes the appearance is a result of hypoventilation or motion artifact. However, in the appropriate clinical setting, fluid overload with pulmonary edema which may be cardiogenic or noncardiogenic, pneumonia or various causes of alveolitis should be considered including multiple opportunistic infections, diffuse alveolar hemorrhage, ARDS and a multitude of chronic interstitial diseases. There are scattered ground glass opacities in the lungs bilaterally. PLEURAL SPACE: No evidence of pneumothorax or pleural effusions. HEART: Unremarkable. No cardiomegaly. No significant pericardial effusion. BONES/JOINTS: There are postoperative changes of anterior cervical discectomy and fusion (ACDF) at C6-7 with placement of an anterior plate and screws. Orthopedic hardware is intact. There is a small hemangioma in the T3 vertebral body. There is no evidence of acute fracture, osseous destruction or osteoblastic changes. SOFT TISSUES: Unremarkable. VASCULATURE: The aorta appears grossly unremarkable without evidence of aneurysm or discernible injury although assessment is limited by the lack of intravenous contrast. LYMPH NODES: Unremarkable. There is no evidence of hilar, mediastinal or axillary adenopathy. UPPER ABDOMEN: The visualized structures in the upper abdomen are unremarkable status post cholecystectomy. IMPRESSION: Groundglass opacification is noted fairly symmetrically in the lower lobes and dependent upper lobes and a nonspecific finding and not necessarily indicative of significant pathology. Sometimes the appearance is a result of hypoventilation or motion artifact. However, in the appropriate clinical setting, fluid overload with pulmonary edema which may be cardiogenic or noncardiogenic, pneumonia or various causes of alveolitis should be considered including multiple opportunistic infections, diffuse alveolar hemorrhage, ARDS and a multitude of chronic interstitial diseases. Electronically signed by: Tatyana Martinez MD 06/24/2018 2:23 PM CDT
--- NOTE | 2018-06-24 15:01 | CT ---
PROCEDURE: CT Abdomen and Pelvis Without Intravenous Contrast CLINICAL INDICATION: The patient is 47 years years old, Female; fell off horse, loc, head and hip/back pain TECHNIQUE: Axial computed tomography images of the abdomen and pelvis without intravenous contrast. Sagittal and coronal reformatted images were created and reviewed. This CT exam was performed using one or more of the following dose reduction techniques: automated exposure control, adjustment of the mA and/or kV according to patient size, and/or use of iterative reconstruction technique. Intravenous contrast not administered, precluding optimal assessment of the viscera, bowel, bladder and vascular structures. COMPARISON: No relevant prior studies available. FINDINGS: LUNG BASES: See separate discussion of the lung bases under CT chest. ABDOMEN: LIVER: There is extrahepatic biliary ductal dilatation with the common hepatic duct measuring 0.8 cm. GALLBLADDER AND BILE DUCTS: The gallbladder is absent status post cholecystectomy with surgical clips in the gallbladder fossa. PANCREAS: Unremarkable. No ductal dilatation, inflammatory changes or mass. SPLEEN: The spleen is normal in size. However there are a few small accessory splenules. There are no focal defects in the liver. ADRENALS: There is a 2.6 cm x 1.4 cm hyperdense area in the lateral limb of the right adrenal gland which appears homogeneous and could represent acute adrenal injury with hemorrhage. Neoplasia not entirely excludable ACR White Paper guidelines (Dave, et al. JACR 2010; 7(10):754-) suggest follow-up abdominal CT or MR in 12 months. Alternatively, if there is a history of malignancy, consider further evaluation with PET or MR. The left adrenal gland is unremarkable. KIDNEYS AND URETERS: There is mild right pelvocaliectasis and ureterectasis without discernible ureterolithiasis or cystolithiasis or discernible extrinsic mass. There is a conglomerate of calculi in the lower pole measuring 0.7 cm x 0.6 cm. An additional punctate calculus is noted in the interpolar region of the right kidney and another in the interpolar region of the left kidney versus vascular calcifications. Bilateral nephrolithiasis, right greater than left. There is no evidence of solid renal mass or left hydronephrosis. STOMACH AND BOWEL: There is a small hiatal hernia. The stomach is otherwise unremarkable. Small bowel, colon and rectum are unremarkable. PELVIS: APPENDIX: The appendix is not discretely visualized; however, there is no definite inflammation in the right lower quadrant to suggest acute appendicitis.. BLADDER: Unremarkable, allowing for the degree of distention. There is no evidence of cystolithiasis or bladder mass. REPRODUCTIVE: The uterus is not identified. There are no adnexal masses. ABDOMEN and PELVIS: INTRAPERITONEAL SPACE: No evidence of free air or free fluid i.e. no evidence of hemoperitoneum BONES/JOINTS: There is mild osteitis pubis. Symmetric mild degenerative changes are noted in the hip joints with moderate symmetric joint space loss and mild marginal acetabular osteophytosis. There are acute, nondisplaced fractures of the right ninth and 10th ribs. There are acute fractures of the right transverse processes of L1, L2, L3 and L4. Vertebral body heights and disc heights appear maintained with the exception of mild narrowing of the L1-2 disc. Suspect a tiny smooth ossific density adjacent to the spinous process of L2 may be interspinous ligamentum ossification and does not appear acute. SOFT TISSUES: Unremarkable. VASCULATURE: See above. LYMPH NODES: Unremarkable. There is no evidence of mesenteric, retroperitoneal, pelvic or inguinal adenopathy IMPRESSION: 1. Acute fractures of the right transverse processes of L1-L4, inclusive as well as acute fractures of the right ninth and 10th ribs.THIS REPORT CONTAINS FINDINGS THAT MAY BE CRITICAL TO PATIENT CARE: The findings were verbally discussed via telephone conference with Dr. Aldo Meyer by Dr. Tatyana Martinez on 06/24/2018 2:55 PM CDT .The results were acknowledged and understood. 2. 2.6 cm x 1.4 cm hyperdense area in the lateral limb of the right adrenal gland which appears homogeneous and could represent acute adrenal injury with hemorrhage or calcification. Neoplasia not entirely excludable. ACR White Paper guidelines (Berland, et al. JACR 2010; 7(10):75-49) suggest follow-up abdominal CT or MR in 12 months. Alternatively, if there is a history of malignancy, consider further evaluation with PET or MR. THIS REPORT CONTAINS FINDINGS THAT MAY BE CRITICAL TO PATIENT CARE: The findings were verbally discussed via telephone conference with Dr. Aldo Meyer by Dr. Tatyana Martinez on 06/24/2018 2:55 PM CDT .The results were acknowledged and understood. 3. There is mild right pelvocaliectasis and ureterectasis without discernible ureterolithiasis or cystolithiasis or discernible extrinsic mass. This could reflect sequela of recent passage of a calculus or remote passage of a calculus. 4. Extrahepatic biliary ductal dilatation may reflect expected sequela of cholecystectomy with a biliary reservoir effect. A distal common bile duct obstruction, as may occur with choledocholithiasis or benign or malignant stricture, is a less likely consideration but warrants correlation with liver function tests and MRCP or ERCP if indicated. 5. Bilateral nephrolithiases Electronically signed by: Tatyana Martinez MD 06/24/2018 2:58 PM CDT
--- NOTE | 2018-06-24 15:02 | RAD ---
EXAM DESCRIPTION: Hip,Right 2 Views CLINICAL HISTORY: 47 years Female fell of horse, pain COMPARISON: None TECHNIQUE: AP and frog leg views of the right hip are obtained. FINDINGS: OSSEOUS: There is no evidence of acute fracture or osteolytic/osteoblastic lesions. No evidence of subluxation or dislocation. The hip joint is preserved. There is no evidence of degenerative osteophytosis or sclerosis. There is no evidence of marginal erosive changes to suggest an inflammatory arthritis. SOFT TISSUE: There is no significant soft tissue swelling or mass. No evidence of significant soft tissue calcifications. No radiopaque foreign bodies. No evidence of a hip joint effusion. IMPRESSION: No acute osseous abnormalities. Remainder of findings as described above. Electronically signed by: Tatyana Martinez MD 06/24/2018 2:59 PM CDT
[2018-06-24] MEDS ORDERED: MORPHINE SULFATE INJ 10 MG/ML VIAL IV ONE ×2 (15:36→16:53)
[2018-06-24] MEDS ORDERED: cefTRIAXone SODIUM 1 GM in SODIUM CHL 0.9% 50ML MIN-BAG+ 50 ML IVPB ONE (15:36)
[2018-06-24] MEDS ORDERED: cefTRIAXone SODIUM 1 GM VIAL ONE (15:40)
[2018-06-24] MEDS ORDERED: SODIUM CHL 0.9% 50ML MIN-BAG+ 50 ML IVPB ONE (15:41)
--- NOTE | 2018-06-24 16:37 | ED.PDOC ---
History of Present Illness - General Chief Complaint: Trauma Stated Complaint: fell off a horse Time Seen by Provider: 06/24/18 12:47 Source: patient - History of Present Illness Initial Comments: the patient is a 47-year-old female presenting to the emergency room secondary to having fallen off of her horse. The horse was apparently not going very fast and she got herself mostly lowered to the ground before she fell off. reports however that she did have a syncopal episode that lasted about 30-45 seconds. She does have a history of seizures and is followed by neurology. She is ever so slightly confused upon arrival here but her mentation clears quickly. She does have a small hematoma to the posterior scalp. She is complaining of pain to the right rib cage as well as the low back and right hip. No complaints of any neck pain. She does have a history of having had a brain tumor of some form resected in the not too distant past. 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 Timing/Duration: 1/2 hour Severity: severe Improving Factors: immobilization Worsening Factors: movement Associated Symptoms: denies symptoms Allergies/Adverse Reactions: Allergies NO KNOWN ALLERGY Allergy (Verified 06/07/17 18:54) Home Medications: Ambulatory Orders Levothyroxine Sodium [Synthroid] 175 mcg PO AM 05/29/12 Lisinopril [Prinivil] 10 mg PO DAILY tab 06/08/17 Ylvswxfzizrgo-Rqyh-Epqulepqik [Fioricet] 1 ea PO Q8H PRN #21 tab 06/21/17 Uovzhoavrvsua-Swyk-Fbzhdpghvf [Fioricet] 1 ea PO Q8H PRN #21 tab 06/24/18 Amoxicillin & Pot Clavulanate [Augmentin Tab] 875 mg PO BID #20 tab 06/24/18 Cyclobenzaprine HCl [Flexeril] 10 mg PO TID PRN #30 tab 06/24/18 Review of Systems - Review of Systems Constitutional: States: malaise EENTM: States: no symptoms reported Respiratory: States: no symptoms reported Cardiology: States: chest pain - right lateral Gastrointestinal/Abdominal: States: no symptoms reported Genitourinary: States: no symptoms reported Musculoskeletal: States: see HPI Skin: States: no symptoms reported Neurological: States: see HPI Endocrine: States: no symptoms reported All other Systems: No Change from Baseline Past Medical History (General) - Patient Medical History Hx Seizures: No Hx Stroke: No Hx Dementia: No Hx Asthma: No Hx of COPD: No Hx Cardiac Disorders: No Hx Congestive Heart Failure: No Hx Pacemaker: No Hx Hypertension: Yes Hx Thyroid Disease: Yes Hx Diabetes: No Hx Gastroesophageal Reflux: No Hx Renal Disease: No Hx Cancer: No Hx of HIV: No Hx Hepatitis C: No Hx MRSA: No MRSA Source:: Urine Surgical History: cholecystectomy, Hysterectomy - Vaccination History Hx Tetanus, Diphtheria Vaccination: Yes Hx Influenza Vaccination: Yes Hx Pneumococcal Vaccination: No Immunizations Up to Date: Yes - Social History Hx Tobacco Use: No Hx Chewing Tobacco Use: No Hx Alcohol Use: Yes - [place] Hx Substance Use: No Hx Substance Use Treatment: No Hx Depression: No - Female History Patient is a Female of Child Bearing Age (10 -59 yrs old): No Family Medical History - Family History Mother Family History: No Known Living Status: Still Living Hx Family Congestive Heart Failure: Yes Hx Family Hypertension: Yes Hx Cardiac Disease: Yes Hx Family Diabetes: Yes Physical Exam - Physical Exam General Appearance: Alert, Comfortable, No apparent distress Eye Exam: bilateral normal Ears, Nose, Throat: hearing grossly normal, normal ENT inspection, normal pharynx Neck: full range of motion, supple Respiratory: lungs clear, normal breath sounds, no respiratory distress, no accessory muscle use, other - right lateral lower rib cage is tender to palpation. Cardiovascular/Chest: normal peripheral pulses, regular rate, rhythm, no edema Peripheral Pulses: radial,right: 2+, radial,left: 2+, dorsalis pedis,right: 2+, dorsalis pedis,left: 2+ Gastrointestinal/Abdominal: non tender, soft Rectal Exam: deferred Back Exam: other - he patient has pain diffusely over the low back and worse on the right Extremity: normal range of motion - active and passive, non-tender, no pedal edema, no calf tenderness, normal capillary refill Neurologic: wood last maker II-XII nml as tested, no motor/sensory deficits, alert, oriented x 3, other - the patient is initially drowsy and a little disoriented. Mentation clears quickly. Skin Exam: normal color - small hematoma in the posterior scalp. Comments: Vital Signs - 24 hr 06/24/18 06/24/18 06/24/18 13:03 14:00 15:13 Temperature 98.3 F Pulse Rate [ 63 61 78 MONITOR] Respiratory 18 Rate Blood Pressure 141/87 131/88 126/83 [RA] O2 Sat by Pulse 99 Oximetry 06/24/18 16:18 Temperature Pulse Rate [ 53 L MONITOR] Respiratory 18 Rate Blood Pressure 130/86 [RA] O2 Sat by Pulse Oximetry Progress - Progress Progress: 06/24/18 16:43 the patient is a 47-year-old female presenting to the emergency room due to trauma from falling off a horse. It is likely the patient does have a mild concussion. CT scan of the head showed no acute injury. The patient does have nondisplaced rib fractures of the right ninth and 10th ribs. She does have right-sided transverse process fractures from L1 down through L4. As she does possibly have a small contained hemorrhage into the right adrenal gland with a left adrenal gland looking normal. The patient has been monitored for several hours. She has no evidence of any vascular instability or uncontrolled hemorrhage. The patient can use her hydrocodone that she has at home for the next few days for pain control as it is stronger than anything I can write for her from here. She does need to take MiraLAX at least daily to help prevent constipation with the hydrocodone use and decreased mobility. Additionally she does need to get up and move around to prevent deconditioning, further muscle spasm and further atelectatic changes in the lungs that could lead to infection. The patient is going to be placed on Augmentin twice daily as an antibiotic for her maxillary sinusitis. She needs to follow up with her primary care doctor in a couple of days for reevaluation and additional pain medications if she needs them. if pain is not improving over the coming week and she can see orthopedics to be fitted for a brace. ER warnings were given. - Results/Orders Results/Orders: CT scan of the cervical spine shows no evidence of any acute trauma. Chronic changes are found. CT scan of the head shows no evidence of any acute trauma. Chronic changes are as well found. She does have a right maxillary sinusitis as well. CT scan of the chest shows mild posterior and inferior scattered infiltrates or opacities. This could potentially be a normal variant but could also be related to atelectasis or infections. the patient also has nondisplaced rib fractures laterally of the ninth and 10th ribs on the right. No pneumothorax. No obvious pulmonary contusion. CT scan of abdomen and pelvis has numerous essentially chronic findings. The patient does have right-sided transverse process fractures from L1-L4. additionally there is possibility of a small right adrenal hemorrhage. Left adrenal gland is within normal limits. There is very mild dilation of the right renal collecting system that is likely chronic. Laboratory Tests 06/24/18 06/24/18 06/24/18 15:04 15:04 15:32 WBC 16.0 H RBC 4.39 Hgb 13.5 Hct 41.0 MCV 93.3 MCH 30.8 MCHC 32.9 L RDW 13.3 Plt Count 260 MPV 8.5 Absolute Neuts (auto) 13.70 H Absolute Lymphs (auto) 1.40 Absolute Monos (auto) 0.80 Absolute Eos (auto) 0.10 Absolute Basos (auto) 0.10 Neutrophils % 85.6 H Lymphocytes % 8.5 L Monocytes % 4.8 Eosinophils % 0.7 L Basophils % 0.4 Sodium 138 Potassium 3.6 Chloride 106 Carbon Dioxide 19 L Anion Gap 16.6 BUN 8 Creatinine 0.60 BUN/Creatinine Ratio 13.3 Random Glucose 107 H Serum Osmolality 274.5 L Calcium 8.7 Total Bilirubin 0.6 AST 24 ALT 13 Alkaline Phosphatase 88 Serum Total Protein 7.2 Albumin 4.1 Globulin 3.1 Albumin/Globulin Ratio 1.3 Urine Color Yellow Urine Appearance Clear Urine pH 7.0 Ur Specific [place] 1.010 Urine Protein 30 Urine Glucose (UA) Negative Urine Ketones Trace Urine Blood Small H Urine Nitrite Negative Urine Bilirubin Negative Urine Urobilinogen 0.2 Ur Leukocyte Esterase Negative Urine RBC 5-10 H Urine WBC 0 Ur Epithelial Cells 3-5 Urine Bacteria 0 - EKG/XRAY/CT CT Ordered: Yes CT Interpretation Call Back: Yes Departure - Departure Clinical Impression: Adrenal hemorrhage Fall from horse Qualifiers: Encounter type: initial encounter Qualified Code(s): V80.010A - Animal-rider injured by fall from or being thrown from horse in noncollision accident, initial encounter Lumbar transverse process fracture Qualifiers: Encounter type: initial encounter Fracture type: closed Qualified Code(s): S32.009A - Unspecified fracture of unspecified lumbar vertebra, initial encounter for closed fracture Rib fractures Qualifiers: Encounter type: initial encounter Rib fracture type: multiple ribs Fracture type: closed Laterality: right Qualified Code(s): S22.41XA - Multiple fractures of ribs, right side, initial encounter for closed fracture Maxillary sinusitis Qualifiers: Chronicity: subacute Qualified Code(s): J01.00 - Acute maxillary sinusitis, unspecified Concussion Qualifiers: Encounter type: initial encounter Loss of consciousness presence/duration: with LOC of 30 min or less Qualified Code(s): S06.0X1A - Concussion with loss of consciousness of 30 minutes or less, initial encounter Disposition: Discharge to Home or Self Care Condition: Fair Departure Forms: ED Discharge - Pt. Copy, Patient Portal Self Enrollment Instructions: DI for Trauma, Sinusitis, Adult (DC), Low Back Pain (DC) Diet: other Activity: increase activity as tolerated Referrals: Brad Meyer MD [Primary Care Provider] - 1-2 Weeks Prescriptions: Irlhtrcujodoo-Xecm-Cixaznikyd [Fioricet] 1 ea PO Q8H PRN #21 tab PRN Reason: Pain Amoxicillin & Pot Clavulanate [Augmentin Tab] 875 mg PO BID #20 tab Cyclobenzaprine HCl [Flexeril] 10 mg PO TID PRN #30 tab PRN Reason: Muscle Spasms Home Medications: Ambulatory Orders Levothyroxine Sodium [Synthroid] 175 mcg PO AM 05/29/12 Lisinopril [Prinivil] 10 mg PO DAILY tab 06/08/17 Nqiyohesolycm-Pneo-Cjescexotg [Fioricet] 1 ea PO Q8H PRN #21 tab 06/21/17 Ztneghajkervg-Pwvk-Iubeuigugk [Fioricet] 1 ea PO Q8H PRN #21 tab 06/24/18 Amoxicillin & Pot Clavulanate [Augmentin Tab] 875 mg PO BID #20 tab 06/24/18 Cyclobenzaprine HCl [Flexeril] 10 mg PO TID PRN #30 tab 06/24/18 Additional Instructions: the patient is a 47-year-old female presenting to the emergency room due to trauma from falling off a horse. It is likely the patient does have a mild concussion. CT scan of the head showed no acute injury. The patient does have nondisplaced rib fractures of the right ninth and 10th ribs. She does have right-sided transverse process fractures from L1 down through L4. As she does possibly have a small contained hemorrhage into the right adrenal gland with a left adrenal gland looking normal. The patient has been monitored for several hours. She has no evidence of any vascular instability or uncontrolled hemorrhage. The patient can use her hydrocodone that she has at home for the next few days for pain control as it is stronger than anything I can write for her from here. She does need to take MiraLAX at least daily to help prevent constipation with the hydrocodone use and decreased mobility. Additionally she does need to get up and move around to prevent deconditioning, further muscle spasm and further atelectatic changes in the lungs that could lead to infection. The patient is going to be placed on Augmentin twice daily as an antibiotic for her maxillary sinusitis. She needs to follow up with her primary care doctor in a couple of days for reevaluation and additional pain medications if she needs them. if pain is not improving over the coming week and she can see orthopedics to be fitted for a brace. ER warnings were given.
[2018-06-24 17:14] VITALS: BP 144/94; O2SAT 98
== END 2018-06-24 17:13 | disposition home or self-care (01) ==
LOC: ER 12:44
DX: S06.0X1A Concussion with loss of consciousness of 30 minutes or less, initial encounter (principal); S22.41XA Multiple fractures of ribs, right side, initial encounter for closed fracture; S32.019A Unspecified fracture of first lumbar vertebra, initial encounter for closed fracture; S32.029A Unspecified fracture of second lumbar vertebra, initial encounter for closed fracture; S32.049A Unspecified fracture of fourth lumbar vertebra, initial encounter for closed fracture; S32.039A Unspecified fracture of third lumbar vertebra, initial encounter for closed fracture; E27.49 Other adrenocortical insufficiency; J01.00 Acute maxillary sinusitis, unspecified; S00.03XA Contusion of scalp, initial encounter; M25.551 Pain in right hip; R56.9 Unspecified convulsions; I10 Essential (primary) hypertension; E07.9 Disorder of thyroid, unspecified; Z86.73 Personal history of transient ischemic attack (TIA), and cerebral infarction without residual deficits; V80.010A Animal-rider injured by fall from or being thrown from horse in noncollision accident, initial encounter; Y93.52 Activity, horseback riding; Y92.9 Unspecified place or not applicable; Z79.899 Other long term (current) drug therapy
CPT/HCPCS: 36415; 70450; 71250; 72125; 73502; 74176; 80053; 81001; 85025; J0696; J1885; J2270; J7050

== ENCOUNTER → 2018-07-03 | Outpatient (CLI) | payer BC ==
--- NOTE | 2018-07-03 21:05 | US ---
EXAM DESCRIPTION: Abdomen,Limited: ULTRASOUND. CLINICAL HISTORY: ADRENAL HEMORRHAGE COMPARISON: CT scan of abdomen and pelvis 06/24/2016. TECHNIQUE: Transabdominal scanning: roach-scale and Doppler modes. FINDINGS: In the region of the right adrenal gland abutting the liver, is a 2.1 cm x 2.2 cm well-defined hypoechoic oval-shaped objects which may represent the right adrenal gland. No Doppler color flow. Left adrenal gland is not visualized. No large fluid collection or soft tissue mass. IMPRESSION: 2.2 x 2.1 cm hypoechoic mass abutting the liver may represent the abnormal limb of the right adrenal gland seen on CT scan and recommend one year CT or MRI follow-up as described in the IMPRESSION of the CT scan report, if there is no history of malignancy elsewhere. Electronically signed by: Willian Carter MD 07/03/2018 9:02 PM CDT
== END ==
LOC: US 08:30
PROVIDERS: ATTEND Family Medicine
DX: E27.40 Unspecified adrenocortical insufficiency (principal)

== ENCOUNTER → 2018-08-04 | Outpatient (CLI) | payer BC ==
--- NOTE | 2018-08-04 15:09 | CT ---
EXAM DESCRIPTION: Abdomen/Pelvis w/Contrast: Computed Tomography. CLINICAL HISTORY: 47 years Female RIGHT UPPER QUADRANT ABDOMINAL PAIN COMPARISON: CT scan of the abdomen and pelvis without IV contrast, 06/24/2018. TECHNIQUE: Spiral-axial scans at 5 x 5 mm intervals through the abdomen and pelvis, after nonionic IV contrast and water-soluble oral contrast. Axial 2.5 mm reconstructions. Coronal and sagittal 2.0 mm reconstructions. Delayed scans, liver through the pelvis. Axial-spiral 5mm. No adverse reactions. Total Exam DLP: 2128.78 mGy-cm. This exam was performed according to our departmental dose-optimization program which includes automated exposure control, adjustment of the mA and/or kV according to patient size and/or use of iterative reconstruction technique; to reduce radiation dose to as low as reasonably achievable (ALARA). FINDINGS: Lung bases and pleura: Minimal bilateral posterior dependent atelectasis. Liver, Stomach, Spleen, Adrenal Glands: Negative. Splenules are present.. Pancreas, Gallbladder, Ducts: Surgical clips in the gallbladder fossa with no fluid. Minimal dilation of the common bile duct but not abnormal. Pancreas negative. Kidneys and Ureters: 2 kidney stones again noted in the inferior collecting system on the right but no stones on the left. Largest stone on the right is 5 mm. No hydronephrosis or perirenal fluid bilaterally. Ureters are negative. Mesentery: Unremarkable. Aorta: Negative. Small Bowel: Minimal gaseous distention of some segments but no obstruction or significant air-fluid levels. Terminal Ileum/Cecum: Normal caliber. Appendix not seen. Normal density of the surrounding fat. Colon: Fecal material proximal colon. Minimal gas remainder of the colon with no distention. Sigmoid colon is minimally redundant. Pelvic Organs: 1.7 cm follicle left ovary. Right ovary is smaller. Vaginal cuff unremarkable with no fluid in the cul-de-sac. No radiodense stones in the urinary bladder. Spine and Bony Pelvis: Spondylosis and L5-S1 disc space loss. Healing fractures of the right first through fourth lumbar transverse processes are again seen and healing fractures of the right lateral posterior ninth and 10th ribs. No acute fractures. Abdominal Wall/Back Soft Tissues: Negative. IMPRESSION: 1. No free fluid or ascites in the abdomen or pelvis. No abnormal common bile duct dilation. Normal CT appearance of the liver, spleen. No free air or fatty stranding. Adrenal glands are negative. 2. 1.7 cm follicle in the left ovary but no abnormal enhancement calcification or free fluid or fatty stranding. 3. Stable radiodense stones in the inferior collecting system of the right kidney with no evidence of obstruction. No left renal stones. #4 healing fractures lumbar transverse processes and ribs as noted. Electronically signed by: Willian Carter MD 08/04/2018 3:07 PM CDT
== END ==
LOC: CT 07:57
PROVIDERS: ATTEND Urology
DX: D30.00 Benign neoplasm of unspecified kidney (principal); N83.02 Follicular cyst of left ovary; N20.0 Calculus of kidney; S22.42XD Multiple fractures of ribs, left side, subsequent encounter for fracture with routine healing; S32.019D Unspecified fracture of first lumbar vertebra, subsequent encounter for fracture with routine healing; S32.029D Unspecified fracture of second lumbar vertebra, subsequent encounter for fracture with routine healing; S32.039D Unspecified fracture of third lumbar vertebra, subsequent encounter for fracture with routine healing; S32.049D Unspecified fracture of fourth lumbar vertebra, subsequent encounter for fracture with routine healing

== ENCOUNTER → 2018-10-17 | Outpatient (CLI) | payer BC ==
--- NOTE | 2018-10-18 14:05 | MRI ---
EXAM DESCRIPTION: Lumbar Spine w/o Contrast : Magnetic Resonance Imaging. CLINICAL HISTORY: RADICULOPATHY LUMBAR REGION COMPARISON: MRI scan of the lumbar spine without contrast 02/17/2012. MRI scan of the cervical spine and MRI scan of the brain with and without contrast on this visit. TECHNIQUE: Multiplanar, multiple standard sequences, non contrast MRI, lumbar spine. FINDINGS: L4-L5: Posterior midline and slightly to the left of midline 7 mm disc protrusion with 5 mm extrusion inferior to the superior L5 endplate. Impressing on the thecal sac and the left subarticular recess inferiorly. Progressed compared to bulging on the prior study. Mild left paracentral canal stenosis. Asymmetry in the left L5 lamina which may be due to prior partial laminectomy. Also seen on the prior study. Bilateral mild foraminal narrowing. L5-S1: Disc desiccation with disc space preserved. Anterior endplate reactive changes. Posterior left paracentral bulge of the disc with hyperintense T2 weighted annular fissure abutting the left S1 nerve root above the lateral recess. Partial laminectomy better demonstrated. Granulation tissue also abutting the left S1 nerve. Bilateral moderate foraminal narrowing. L3-L4: Minimal desiccation of the disc with disc space maintained. Hyperintense T2 weighted annular fissure left intraforaminal posterior wall. Minimal bilateral flavum ligament thickening. Mild canal narrowing. Bilateral foramina are patent. L2-L3: Normal signal in the disc with disc space preserved. Posterior elements unremarkable. Canal and foramina are patent. L1-L2: Minimal desiccation of the disc with disc space preserved, only anterior bulging. Posterior elements unremarkable. Canal and foramina are patent. T12-L1: Normal signal in the disc with disc space preserved. Posterior elements unremarkable. Canal and foramina are patent. Conus terminates at this level. Normal curvature of the spine. Paravertebral soft tissues showing postsurgical changes posterior to the left L5 lamina.. Circumscribed hyperintense T1 and T2 objects in the left S1 sacral ala, and the left L3 and L2 vertebral bodies consistent with hemangiomas. Otherwise normal marrow signal in the remaining vertebral bodies and the posterior elements. Vertebral bodies are not compressed at any level. IMPRESSION: 1. L4-5 disc has progressed from bulging into herniation and inferior extrusion to the left of midline encroaching on the thecal sac and possible compromise left L5 nerve in the subarticular recess. Mild left paracentral canal stenosis. 2. Prior partial left L5 laminectomy. Postsurgical changes including granulation tissue around the descending left S1 nerve. No change from the prior study. 3. Annular fissure in the left lateral L3-4 disc margin abutting the left foramen. No foraminal stenosis. Electronically signed by: Willian Carter MD 10/18/2018 2:03 PM CDT
--- NOTE | 2018-10-18 15:05 | MRI ---
EXAM DESCRIPTION: Brain w/wo Contrast: Magnetic Resonance Imaging. CLINICAL HISTORY: 48 years Female HEADACHE COMPARISON: MRI scan of the brain without and with gadolinium IV contrast 12/07/2017. TECHNIQUE: Multiplanar, high-field MRI, multiple conventional sequences, without and with gadolinium IV contrast. No adverse reactions. Multiple axial diffusion sequences. FINDINGS: Again noted is a region of encephalomalacia in the parasagittal superior left cerebellar cortex where previous tumor was removed. No rim enhancement on the current study with encephalomalacia slightly more enlarged. No mass effect. No abnormal enhancement in the surrounding cerebellar tissue are in the meninges or craniotomy site. Artifact on the diffusion study. Normal signal and contrast enhancement in the remainder of the cerebellum. Small scattered hyperintense foci of FLAIR and T2-weighted signal in the periventricular white matter and subcortical white matter bilaterally stable since the prior study.. Normal signal in the bilateral basal ganglia. No hemorrhage, no cerebral edema, no mass-effect. Normal contrast enhancement. Normal signal in the brainstem. No hemorrhage, no cerebral edema, no mass-effect. Normal contrast enhancement. Concordance of the diffusion and non-diffusion sequences with no evidence of acute or subacute infarction. Cortical sulci, ventricles, and other CSF spaces, and the subdural spaces are normally configured, except for the previous operative site. No effacement or displacement. No midline shift. No extra-axial hemorrhage. Normal contrast enhancement. Normal flow signal void in the major vessels of the [place], and the venous sinuses. IACs are symmetric bilaterally. Normal signal in the bilateral mastoid air cells. No mass effect in the bilateral Cerebellopontine angles. Normal contrast enhancement. Pituitary gland occupies most of the sella. Normal contrast enhancement. Base of the cerebellar tonsils is at the level of the foramen magnum. Mucoperiosteal thickening in the ethmoid air cells and right maxillary antrum. Again noted is turbinate mucosal hypertrophy and posterior left septal spur and deviation. The bony calvarium is intact. IMPRESSION: 1. 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 Minimal diffusion artifact. 2. Stable bilateral small foci of white matter signal most likely related to aging and cerebral microvascular disease, without hemorrhage, edema, or enhancement. 3. Stable chronic sinusitis paranasal sinuses. Electronically signed by: Willian Carter MD 10/18/2018 2:51 PM CDT
--- NOTE | 2018-10-18 16:45 | MRI ---
EXAM DESCRIPTION: Cervical Spine: MRI. CLINICAL HISTORY: 48 years Female CERVICALGIA COMPARISON: CT scan of the cervical spine, 06/24/2018. MRI scan of the lumbar spine and MRI scan of the brain without and with gadolinium IV contrast on this visit. TECHNIQUE: Multiplanar, high-field MRI, multiple sequences, non-contrast Cervical spine. FINDINGS: C4-C5: Minimal desiccation of the disc minimal loss of anterior disc space. Minimal anterior bulging. Posterior disc bulge 2 mm abutting the cord. No compression. Mild canal narrowing. Small uncinate spur on the right. Minimal neural foraminal narrowing. Facets are negative. Left neuroforamen patent. C5-C6: Disc desiccation and minimal anterior disc space loss. Posterior broad-based disc bulge. Not abutting the cord. Bilateral small uncinate spurs. Facets are negative. Bilateral mild neural foraminal narrowing. C6-7: Anterior cervical disc fusion. No material encroaching on the canal or the cord. Uncinate spur on the left narrowing the neural foramen. Normal signal around the hardware. No abnormal fluid collection in the canal or exterior to the canal, or paravertebral. T1-T2: Normal signal in the disc and disc space preserved. No bulging. Facets are negative. Bilateral perineural cysts in the neural foramina. Circumscribed hyperintense T1 and T2 signal in the T3 and T4 vertebral bodies. Consistent with hemangiomas. Normal signal in the remaining discs with no bulging. Disc spaces preserved. Canal and neural foramina are patent. Facet joints are negative. Spinal alignment slightly kyphotic C2-C6.. No cord compression or cord edema. Atlantoaxial joint negative.. Base of the cerebellar tonsils is above the foramen magnum. Encephalomalacia parasagittal left superior cerebellar hemisphere and location of prior tumor resection. No mass effect. Paravertebral soft tissues unremarkable. Vertebral bodies are not compressed at any level. Normal marrow signal in the remaining vertebral bodies and the posterior elements. IMPRESSION: 1. Posterior disc bulge C4-C5 abutting the cord with no compression. Mild canal and right foraminal narrowing. 2. Posterior broad-based C5-C6 disc bulge but no canal stenosis. Bilateral mild neural foraminal narrowing. 3. Anterior cervical disc fusion at C6-C7. No hardware or bony complications. Minimal narrowing of the left neural foramen. Electronically signed by: Willian Carter MD 10/18/2018 4:43 PM CDT
== END ==
LOC: MRI 13:02
PROVIDERS: ATTEND Psychiatry & Neurology Clinical Neurophysiology
DX: G93.89 Other specified disorders of brain (principal); J32.9 Chronic sinusitis, unspecified; M50.921 Unspecified cervical disc disorder at C4-C5 level; M50.922 Unspecified cervical disc disorder at C5-C6 level; M51.16 Intervertebral disc disorders with radiculopathy, lumbar region; Z98.1 Arthrodesis status; Z98.890 Other specified postprocedural states

== ENCOUNTER → 2018-11-13 | Outpatient (CLI) | payer BC | LOC: GMAM 14:32 | PROVIDERS: ATTEND Family Medicine | DX: E53.8 Deficiency of other specified B group vitamins (principal); R63.5 Abnormal weight gain; E03.9 Hypothyroidism, unspecified; E55.9 Vitamin D deficiency, unspecified; Z79.899 Other long term (current) drug therapy ==

== ENCOUNTER → 2018-12-26 | Outpatient (CLI) | payer BC | LOC: GMATM 19:11 | PROVIDERS: ATTEND Nurse Practitioner Family | DX: M79.671 Pain in right foot (principal) ==

== ENCOUNTER → 2019-01-18 | Outpatient (CLI) | payer BC | LOC: GMAM 12:11 | PROVIDERS: ATTEND Family Medicine | DX: E03.9 Hypothyroidism, unspecified (principal) ==

== ENCOUNTER → 2020-04-15 | Outpatient (CLI) | payer BC | LOC: GMAM 12:47 | PROVIDERS: ATTEND Family Medicine | DX: E53.8 Deficiency of other specified B group vitamins (principal); E03.9 Hypothyroidism, unspecified; G40.219 Localization-related (focal) (partial) symptomatic epilepsy and epileptic syndromes with complex partial seizures, intractable, without status epilepticus; E55.9 Vitamin D deficiency, unspecified ==

== ENCOUNTER → 2020-05-06 | Outpatient (CLI) | payer BC | LOC: GMAM 16:53 | PROVIDERS: ATTEND Family Medicine | DX: R56.9 Unspecified convulsions (principal) ==